=== PATIENT | female | born 2000 | race Hispanic/Latino ===

== ENCOUNTER 2021-08-11 08:25 | Emergency (ER) | payer SELFPAY | END 2021-08-11 09:10 | disposition home or self-care (01) | LOC: CSHERS 08:25 | DX: H66.91 Otitis media, unspecified, right ear (principal); B34.9 Viral infection, unspecified; I10 Essential (primary) hypertension; E66.9 Obesity, unspecified; Z68.45 Body mass index [BMI] 70 or greater, adult | CPT/HCPCS: 99283 ==